=== PATIENT | female | born 2000 | race African-American/Black ===

== ENCOUNTER → 2023-08-18 06:18 | Outpatient (REF) | payer BC, SELFPAY ==
[2023-08-18 09:04] LABS: Prolactin 15.7 ng/ml (3.0-18.6)
[2023-08-18 09:18] LABS: TSH Reflex To Free T4 0.93 uIU/ml (0.47-4.68)
[2023-08-20 16:54] LABS: DHEA Sulfate 532 ug/dL (148-407)
[2023-08-24 01:45] LABS: Free Testosterone 4.1 pg/mL (0.8-7.4); Sex Hormone Binding Globulin 38 nmol/L (25-122); Total Testosterone,Female/Chil 27 ng/dL (9-55)
== END ==
LOC: REG 06:18
PROVIDERS: ATTENDING PHYSICIAN Obstetrics & Gynecology
DX: N92.6 Irregular menstruation, unspecified (principal)
CPT/HCPCS: 36415; 82627; 84146; 84270; 84402; 84403; 84443